=== PATIENT | male | born 1975 | race Caucasian/White ===

== ENCOUNTER 2018-06-20 18:40 | Emergency (ER) | payer OTHER ==
[2018-06-20 19:23] LABS: PLATELET COUNT 152 10^3/uL (150-400)
[2018-06-20] MEDS ORDERED: IOPAMIDOL (ISOVUE-300) 100 ML BTL ONE (19:43)
[2018-06-20 20:31] VITALS: BP 117/71
--- NOTE | 2018-06-20 20:53 | EDPHY ---
H & P Stated Complaint: R lower quad pain x 2 days Time Seen by Provider: 06/20/18 19:00 HPI/ROS: Chief complaint: Abdominal pain History of present illness: This is a 42-year-old male who presents to the emergency department for evaluation of abdominal pain. He reports the onset of symptoms 2 days ago. He reports a mild soreness in the right, lower aspect of the abdomen. When it first started it was more uncomfortable than it is now, the pain decreased some but since then has been persistent. He denies precipitating factors. He denies alleviating factors. He denies other associated signs or symptoms including no fevers, no nausea, vomiting, diarrhea , constipation, no hematochezia, no melena, no urinary symptoms. He has never had similar. Review of systems: A 10 point review of systems was obtained and other than described above was negative - Medical/Surgical History Hx Asthma: No Hx Chronic Respiratory Disease: No Hx Diabetes: No Hx Cardiac Disease: No Hx Renal Disease: No Hx Cirrhosis: No Hx Alcoholism: No Hx HIV/AIDS: No Hx Splenectomy or Spleen Trauma: No Other PMH: IBS - Social History Smoking Status: Never smoked - Physical Exam Exam: General Appearance: Alert, nontoxic. Eyes: Pupils equal and round no pallor or injection. ENT, Mouth: Mucous membranes moist. Respiratory: There are no retractions, lungs are clear to auscultation. Cardiovascular: Regular rate and rhythm. Gastrointestinal: Bowel sounds are normal. The abdomen is soft, nondistended. Mild tenderness diffusely in the right lower quadrant including over McBurney' s. The rest the abdomen is nontender. No guarding or other peritoneal signs. Neurological: Alert and oriented x4. Strength and sensation intact and symmetrical. Skin: Warm and dry, no rashes. Musculoskeletal: Neck is supple non tender. Extremities are symmetrical, full range of motion. Psychiatric: Patient is oriented X 3, there is no agitation. Constitutional: Initial Vital Signs Temperature (C) 36.5 C 06/20/18 18:48 Heart Rate 65 06/20/18 18:48 Respiratory Rate 16 10 18:48 Blood Pressure 118/78 06/20/18 18:48 O2 Sat (%) 97 10 18:48 O2 Delivery Mode Room Air Allergies/Adverse Reactions: No Known Allergies Allergy (Unverified 06/20/18 18:47) Home Medications: Medication Instructions Recorded NK [No Known Home Meds] 06/20/18 Medical Decision Making - Diagnostics Imaging Results: Imaging Impressions Abdomen CT 06/20/18 19:15 Impression: 1. Constipation. 2. Questionable appendicolith versus calcified lymph node in the right external iliac region without definite inflammatory thickening of the appendix, although the appendix is not well visualized. 3. No bowel obstruction or abscess. Findings and recommendations discussed with emergency department physician administrative personal assistant, Fransisco Espinosa PA-C at 2016 hours on June 20, 2018. Final report concurs with initial preliminary interpretation. Imaging: Discussed imaging studies w/ color artist Radiologist ED Course/Re-evaluation: Patient is discussed with my primary supervising physician Dr. Roseline Hannon. Patient presents for 2 days of right lower quadrant abdominal pain. He is nontoxic. Afebrile and vital signs are stable. Mild soreness on palpation of the right lower quadrant of the abdomen however his abdominal exam does not reveal an acute abdomen. Blood studies are unremarkable including no leukocytosis. CT scan is obtained, the appendix is not visualized however no secondary changes are noted. I have discussed the case in person with the on- call surgeon, Dr. Patrizia Milton. She is comfortable with patient being discharged home and following up in her clinic tomorrow. I have discussed with the patient that it is not clear as to the cause of his symptoms. However the patient does appear to be reliable. I have discussed home care including the use of Colace for constipation seen on CT scan. He is referred to Dr. Milton's office tomorrow for recheck. He is given strict return precautions. The patient voiced understanding and agreement with plan. Differential Diagnosis: Included but not limited to gastritis, gastroenteritis, biliary tract disease, pancreatitis, appendicitis, constipation - Data Points Laboratory Results: Laboratory Results 06/20/18 19:15 06/20/18 19:15 06/20/18 06/20/18 06/20/18 20:30 19:15 19:15 WBC 5.18 10^3/uL 10^3/uL (3.80-9.50) RBC 4.96 10^6/uL 10^6/uL (4.40-6.38) Hgb 15.1 g/dL g/dL (13.7-17.5) Hct 44.8 % % (40.0-51.0) MCV 90.3 fL fL (81.5-99.8) MCH 30.4 pg pg (27.9-34.1) MCHC 33.7 g/dL g/dL (32.4-36.7) RDW 13.0 % % (11.5-15.2) Plt Count 152 10^3/uL 10^3/uL (150-400) MPV 12.0 fL H fL (8.7-11.7) Neut % (Auto) 55.5 % % (39.3-74.2) Lymph % (Auto) 36.3 % % (15.0-45.0) [place] % (Auto) 6.6 % % (4.5-13.0) Eos % (Auto) 1.2 % % (0.6-7.6) Baso % (Auto) 0.2 % L % (0.3-1.7) Nucleat RBC Rel Count 0.0 % % (0.0-0.2) Absolute Neuts (auto) 2.88 10^3/uL 10^3/uL (1.70-6.50) Absolute Lymphs (auto) 1.88 10^3/uL 10^3/uL (1.00-3.00) Absolute Monos (auto) 0.34 10^3/uL 10^3/uL (0.30-0.80) Absolute Eos (auto) 0.06 10^3/uL 10^3/uL (0.03-0.40) Absolute Basos (auto) 0.01 10^3/uL L 10^3/uL (0.02-0.10) Absolute Nucleated RBC 0.00 10^3/uL 10^3/uL (0-0.01) Immature Gran % 0.2 % % (0.0-1.1) Immature Gran # 0.01 10^3/uL 10^3/uL (0.00-0.10) Sodium 139 mEq/L mEq/L (135-145) Potassium 4.3 mEq/L mEq/L (3.3-5.0) Chloride 101 mEq/L mEq/L (97-110) Carbon Dioxide 30 mEq/l mEq/l (22-31) Anion Gap 8 mEq/L mEq/L (6-14) BUN 15 mg/dL mg/dL (7-23) Creatinine 0.8 mg/dL mg/dL (0.7-1.3) Estimated GFR > 60 Glucose 90 mg/dL mg/dL (70-100) Calcium 9.5 mg/dL mg/dL (8.5-10.4) Total Bilirubin 0.5 mg/dL mg/dL (0.1-1.4) Conjugated Bilirubin 0.2 mg/dL mg/dL (0.0-0.5) Unconjugated Bilirubin 0.3 mg/dL mg/dL (0.0-1.1) AST 51 IU/L IU/L (17-59) ALT 34 IU/L IU/L (21-72) Alkaline Phosphatase 55 IU/L IU/L (38-126) Total Protein 8.3 g/dL H g/dL (6.3-8.2) Albumin 4.7 g/dL g/dL (3.5-5.0) Lipase 109 IU/L IU/L (23-300) Urine Color ABBY Urine Appearance HAZY Urine pH 6.0 (5.0-7.5) Ur Specific [place] > 1.035 H (1.002-1.030) Urine Protein NEGATIVE (NEGATIVE) Urine Ketones NEGATIVE (NEGATIVE) Urine Blood NEGATIVE (NEGATIVE) Urine Nitrate NEGATIVE (NEGATIVE) Urine Bilirubin NEGATIVE (NEGATIVE) Urine Urobilinogen NEGATIVE EU EU (0.2-1.0) Ur Leukocyte Esterase NEGATIVE (NEGATIVE) Urine RBC 1-3 /hpf /hpf (0-3) Urine WBC 1-3 /hpf /hpf (0-3) Ur Epithelial Cells NONE SEEN /lpf /lpf (NONE-1+) Urine Glucose NEGATIVE (NEGATIVE) Departure - Departure Disposition: Home, Routine, Self-Care Clinical Impression: Abdominal pain Qualifiers: Abdominal location: right lower quadrant Qualified Code(s): R10.31 - Right lower quadrant pain Condition: Good Instructions: Abdominal Pain (ED) Additional Instructions: At this time it is not clear as to the exact cause of your abdominal pain. We request that you have a recheck tomorrow by either your primary care doctor or our surgeon. I do recommend you take Colace as a stool softener. If at any time symptoms worsen or new symptoms develop including but not limited to increasing pain, fever, nausea and vomiting, changes in stool habits, loss of appetite or other signs or symptoms please return to the emergency room immediately for recheck. Referrals: Arnaldo Arboleda MD [Primary Care Provider] - As per Instructions Patrizia Milton MD [Medical Doctor] - As per Instructions
== END 2018-06-20 21:09 | disposition home or self-care (01) ==
DX: R10.31 Right lower quadrant pain (principal)
CPT/HCPCS: Q9967

== ENCOUNTER 2018-08-11 13:08 | Emergency (ER) | payer OTHER ==
[2018-08-11 13:12] VITALS: BP 125/83
--- NOTE | 2018-08-11 13:19 | EDPHY ---
H & P Time Seen by Provider: 08/11/18 13:13 HPI/ROS: CHIEF COMPLAINT: Right ankle injury HISTORY OF PRESENT ILLNESS: 42-year-old male arrives via private vehicle complaining of acute right ankle and foot injury after he rolled his foot playing racquetball shortly prior to arrival. Unable to bear weight. No proximal tibia or fibula pain. No direct trauma or fall. No calcaneus pain. No paresthesia.. PHYSICAL EXAM (Prior to examination, patient consented to physical exam, hands were washed and my usual and customary physical exam procedures followed) 1) GENERAL: Well-developed, well-nourished, alert and oriented. Appears uncomfortable. 2) HEAD: Normocephalic 3) HEENT: Pupils equal, round, reactive to light bilaterally. 4) LUNGS: Breathing comfortably. 5) MUSCULOSKELETAL: Tender to palpation lateral malleolus. Tender to palpation 5th metatarsal. Soft tissue swelling noted at both locations. Intact skin. proximal tibia and fibula nontender .5th MT nontender negative Albright test, compartments soft 6) SKIN: Intact 7) VASCULAR: DP,PT pulses and cap refill present and brisk DIFFERENTIAL DIAGNOSIS: in no particular order including but not limited to fracture, sprain, compartment syndrome Procedure: Crutches indications for crutch use discussed with patient. Patient fitted for crutches by ER staff. Observed ambulating with crutches. I think the patient has the capacity to safely use crutches. Usual and customary crutch walking precautions provided Procedure: Splint A ela boot splint was applied by ER radiation technician. After application of the splint I returned and re-examined the patient. The splint was adequately immobilizing the joint and distal to the splint the patient's circulation and sensation were intact. Patient shows no signs of compartment syndrome. Was given orthopedic precautions. Smoking Status: Never smoked Constitutional: Initial Vital Signs Temperature (C) 36.3 C 08/11/18 13:10 Heart Rate 75 08/11/18 13:10 Respiratory Rate 20 08/11/18 13:10 Blood Pressure 125/83 H 08/11/18 13:10 O2 Sat (%) 98 08/11/18 13:10 O2 Delivery Mode Room Air Allergies/Adverse Reactions: No Known Allergies Allergy (Verified 08/11/18 13:09) Home Medications: Medication Instructions Recorded oxyCODONE/APAP 5/325 [Percocet 1 tab PO Q6 #7 tab 08/11/18 5/325] MDM/Departure - MDM Imaging Results: Imaging Impressions Ankle X-Ray 08/11/18 13:10 Impression: Vague lucency on single projection across the fifth metatarsal base is probably artifact or nutrient foramen. Would recommend correlation with point tenderness to exclude hairline nondisplaced fracture. Foot X-Ray 08/11/18 13:19 Impression: Vague lucency on single projection across the fifth metatarsal base is probably artifact or nutrient foramen. Would recommend correlation with point tenderness to exclude hairline nondisplaced fracture. Images reviewed myself Medications Given: Discontinued Medications Oxycodone/Acetaminophen (Percocet 5/325) 1 tab PO EDNOW ONE Stop: 08/11/18 13:50 Last Admin: 08/11/18 13:54 Dose: 1 tab ED Course/Re-evaluation: Re-evaluation with serial exams. Discussed his imaging results. Informed patient that he may have a hairline fracture. He is neurovascular intact no evidence of compartment syndrome. He will need follow-up with orthopedics. Given this referral. Given my usual and customary orthopedic precautions and instructions. Care of patient under supervision of secondary supervising physician Dr Tabares . - Depart Disposition: Home, Routine, Self-Care Clinical Impression: Activities involving racquetball Ankle sprain Qualifiers: Encounter type: initial encounter Involved ligament of ankle: unspecified ligament Laterality: right Qualified Code(s): S93.401A - Sprain of unspecified ligament of right ankle, initial encounter Condition: Good Instructions: Ankle Sprain (ED) Additional Instructions: Return to the ER immediately if you experience discoloration, have worsening pain, numbness, tingling, or any other symptoms that concern you. If you received x-rays in the emergency department today, be advised, that ligamentous , tendon, muscular, and other non-bony injury cannot be fully ruled out. Try to keep your affected extremity elevated above the level of your chest, and keep cold packs on the affected area, for the next 48 hours. Prescriptions: oxyCODONE/APAP 5/325 [Percocet 5/325] 1 tab PO Q6 #7 tab Referrals: Vishal Mares MD [Medical Doctor] - 2-3 days, call for appt.
[2018-08-11] MEDS ORDERED: OXYCODONE/APAP 5/325 TAB PO ONE (13:49)
== END 2018-08-11 14:13 | disposition home or self-care (01) ==
DX: S93.401A Sprain of unspecified ligament of right ankle, initial encounter (principal); X50.9XXA Other and unspecified overexertion or strenuous movements or postures, initial encounter; Y92.89 Other specified places as the place of occurrence of the external cause; Y93.73 Activity, racquet and hand sports
CPT/HCPCS: L4386